=== PATIENT | female | born 1955 | race Caucasian/White ===

== ENCOUNTER 2017-08-12 13:55 | Emergency (ER) | payer BC ==
[2017-08-12 14:48] VITALS: BP 110/72
--- NOTE | 2017-08-12 14:57 | UC ---
Upper Extremity HPI - HPI Summary HPI Summary: got right arm caught in a tumbler in a dryer at home 1 week ago-has some continued mid-right forearm pain - History of Current Complaint Chief Complaint: UCUpperExtremity Stated Complaint: ARM INJURY Time Seen by Provider: 08/12/17 14:48 Hx Obtained From: Patient ?: No Onset/Duration: Sudden Onset, Lasting Days, Still Present Severity Initially: Moderate Severity Currently: Mild Location Of Pain: Is Diffuse - right mid forearm Character: Aching Aggravating Factor(s): Movement Alleviating Factor(s): Nothing Associated Signs And Symptoms: Positive: Negative Related History: Dominant Hand Right - Allergies/Home Medications Allergies/Adverse Reactions: Allergies Allergy/AdvReac Type Severity Reaction Status Date / Time Amoxicillin [From Augmentin] Allergy Severe Rash Verified 08/12/17 14:49 Clavulanic Acid Allergy Severe Rash Verified 08/12/17 14:49 [From Augmentin] Mustard Seed Allergy Severe GI Upset Verified 08/12/17 14:49 Sulfa Antibiotics Allergy Severe Rash Verified 08/12/17 14:49 MEAT TENDERIZER Allergy Severe GI Upset Uncoded 08/12/17 14:49 NUTS Allergy Severe Anaphylatic Uncoded 08/12/17 14:49 Shock SESAME Allergy Severe GI Upset Uncoded 08/12/17 14:49 Home Medications: Home Medications Ibuprofen TAB* [Advil TAB*] 400 mg PO PRN 08/12/17 [History] Mometasone Furoate (Nasal) [Nasonex] 50 mcg NA 08/12/17 [History] PMH/Surg Hx/FS Hx/Imm Hx Previously Healthy: Yes - Surgical History Surgical History: Yes Surgery Procedure, Year, and Place: PLEURODESIS, HYSTERECTOMY - Family History Known Family History: Positive: None - Social History Occupation: Retired Lives: With Family Alcohol Use: Occasionally Substance Use Type: None Smoking Status (MU): Never Smoked Tobacco Review of Systems Constitutional: Negative Skin: Negative Eyes: Negative ENT: Negative Respiratory: Negative Cardiovascular: Negative Gastrointestinal: Negative Genitourinary: Negative Motor: Negative Neurovascular: Negative Musculoskeletal: Arthralgia - mid right forearm Neurological: Negative Psychological: Negative Is Patient Immunocompromised?: No All Other Systems Reviewed And Are Negative: Yes Physical Exam Triage Information Reviewed: Yes Appearance: Well-Appearing, No Pain Distress, Well-Nourished Vital Signs: Initial Vital Signs Temp 98.2 F 08/12/17 14:43 Pulse 67 08/12/17 14:43 Resp 16 08/12/17 14:43 BP 110/72 08/12/17 14:43 Pulse Ox 99 08/12/17 14:43 Vital Signs Reviewed: Yes Eye Exam: Normal Eyes: Positive: Conjunctiva Clear ENT Exam: Normal ENT: Positive: Normal ENT inspection, Hearing grossly normal, Pharynx normal. Negative: Nasal congestion, Nasal drainage, Trismus, Muffled voice, Hoarse voice Dental Exam: Normal Neck exam: Normal Neck: Positive: Supple, Nontender, No Lymphadenopathy Respiratory Exam: Normal Respiratory: Positive: Chest non-tender, No respiratory distress, No accessory muscle use Cardiovascular Exam: Normal Cardiovascular: Positive: RRR, Pulses Normal, Brisk Capillary Refill Musculoskeletal Exam: Normal Musculoskeletal: Positive: Strength Intact, ROM Intact, No Edema Neurological Exam: Normal Neurological: Positive: Alert, Muscle Tone Normal Psychological Exam: Normal Skin Exam: Normal Diagnostics - Radiology No standard instances Xray Interpretation: No Acute Changes Radiology Interpretation Completed By: ED Physician, Radiologist Upper Extremity Course/Dx - Course Course Of Treatment: [place] wrap ibuprofen follow with pcp prn - Differential Dx/Diagnosis Provider Diagnoses: muscle strain/contusion right forearm Discharge - Discharge Plan Condition: Stable Disposition: HOME Patient Education Materials: Muscle Strain (ED) Referrals: Sandhya Estrada MD [Primary Care Provider] - If Needed
--- NOTE | 2017-08-12 15:20 | RAD ---
Indication: Mid RIGHT forearm pain following twisting injury one week ago. Comparison: No relevant prior exams available on the [facility] P[facility] for comparison. Technique: AP and lateral views RIGHT radius and ulna. Report: Negative for fracture or articular malalignment. Unremarkable soft tissue contours. IMPRESSION: Negative exam.
== END 2017-08-12 15:30 | disposition home or self-care (01) ==
LOC: UCEAST 13:55
DX: S56.911A Strain of unspecified muscles, fascia and tendons at forearm level, right arm, initial encounter (principal); S50.11XA Contusion of right forearm, initial encounter; X50.9XXA Other and unspecified overexertion or strenuous movements or postures, initial encounter; Y92.009 Unspecified place in unspecified non-institutional (private) residence as the place of occurrence of the external cause; Z88.1 Allergy status to other antibiotic agents; Z88.2 Allergy status to sulfonamides
CPT/HCPCS: 99212; G0463